=== PATIENT | male | born 1960 | race Caucasian/White ===

== ENCOUNTER → 2018-08-19 | Outpatient (CLI) | payer BC ==
[~2018-08-19] MED LIST: LORTAB 7.5/5001 TA3 PO
== END ==
LOC: M.CT 13:42
DX: N20.1 Calculus of ureter (principal); N13.4 Hydroureter; N20.0 Calculus of kidney; K57.30 Diverticulosis of large intestine without perforation or abscess without bleeding; R39.12 Poor urinary stream; Z87.448 Personal history of other diseases of urinary system